=== PATIENT | male | born 1990 | race Two or more races ===

== ENCOUNTER 2021-07-06 23:43 | Inpatient (IN) | payer SELFPAY ==
[2021-07-07] MEDS ORDERED: Bupivacaine 0.5%/EPINEPHrine 1:200,000 50 ML MDV ONE (00:09)
[2021-07-07] MEDS ORDERED: Lidocaine 1% with EPINEPHrine 1:100,000 20 ML MDV ONE (00:10)
[2021-07-07] MEDS ORDERED: HYDROmorphone 0.5 MG/0.5 ML Syringe IVPUSH PRN (00:12)
[2021-07-07] MEDS ORDERED: fentaNYL 100 MCG/2 ML SDV IVPUSH PRN (00:12)
[2021-07-07] MEDS ORDERED: Ondansetron 4 MG/2 ML SDV IVPUSH PRN (00:12)
[2021-07-07] MEDS ORDERED: Lidocaine 1% 5 ML VIAL ONE (00:15)
[2021-07-07] MEDS ORDERED: Propofol 200 MG/20 ML SDV ONE (00:15)
[2021-07-07] MEDS ORDERED: Dexamethasone 4 MG/ML 5 ML MDV ONE (00:15)
[2021-07-07] MEDS ORDERED: Rocuronium 50 MG/5 ML Vial ONE ×2 (00:15→01:50)
[2021-07-07] MEDS ORDERED: fentaNYL 250 MCG/5 ML SDV ONE (00:16)
[2021-07-07] MEDS ORDERED: Midazolam 1 MG/ML 2 ML SDV ONE (00:16)
[2021-07-07] MEDS ORDERED: Sugammadex Sodium 200 MG/2 ML VIAL ONE (01:52)
[2021-07-07] MEDS ORDERED: Ketorolac 15 MG/ML SDV ONE (02:46)
[2021-07-07] MEDS ORDERED: oxyCODONE 5 MG Tab PO PRN (03:58)
[2021-07-07] MEDS ORDERED: Ondansetron 4 MG Tab.DIS PO PRN (03:58)
[2021-07-07] MEDS ORDERED: Dextrose 5%-0.45% NaCl 1,000 ML IV SCH (04:00)
[2021-07-07] MEDS: Acetaminophen 325 MG Tab PO SCH ×4 (04:43→16:49)
[2021-07-07] MEDS: Ibuprofen 600 MG Tab PO SCH ×3 (04:44→16:50)
[2021-07-07] MEDS: Heparin Sodium 5,000 Units/ML Vial SUBCUT SCH ×2 (08:08→16:54)
== END 2021-07-07 17:24 | disposition home or self-care (01) | DRG 352 ==
LOC: JD.ED 23:43 → JD.SDS 23:52 → JD.MS 07-07 03:58 → JD.SDS 07-07 05:29 → JD.MS 07-07 05:30 → UNDOADMIN 07-07 05:30
PROVIDERS: ADMIT Surgery; ATTEND Surgery
PROC: 0YU50JZ Supplement Right Inguinal Region with Synthetic Substitute, Open Approach (ICD-10-PCS; principal; 2021-07-07)
PROC: 0DTU0ZZ Resection of Omentum, Open Approach (ICD-10-PCS; 2021-07-07)
DX: K40.30 Unilateral inguinal hernia, with obstruction, without gangrene, not specified as recurrent (principal); W18.30XA Fall on same level, unspecified, initial encounter; E11.9 Type 2 diabetes mellitus without complications; Y92.009 Unspecified place in unspecified non-institutional (private) residence as the place of occurrence of the external cause; Z98.890 Other specified postprocedural states; Z79.4 Long term (current) use of insulin
CPT/HCPCS: 36415; 71045; 71045-26; 80048; 83735; 84100; A9270-GY; J1100; J1644; J1885; J2250; J2704; J3010; J3490; J7042